=== PATIENT | female | born 1950 | race Caucasian/White ===

== ENCOUNTER 2017-10-09 06:10 | Observation (INO) | payer MEDICARE ==
[~2017-10-09 06:10] MED LIST: Buffered Lidocaine 0.9% SYRIN* 5 ML/SYR SYRINGE INTRADERM ONE; Dexamethasone IV* 4 MG/ML 1 ML (4 MG) IV SLOW PU ONE; Famotidine IV* 10 MG/ML 2 ML (20 mg) IV ONE; celeCOXIB CAP* 200 MG PO ONE
[2017-10-09] MEDS ORDERED: Dexamethasone IV* 4 MG/ML 1 ML (4 MG) ONE (06:17)
[2017-10-09] MEDS ORDERED: ceFAZolin 2 GM PREMIX (*) 2 GM/50 ML BAG IVPB ONE (06:17)
[2017-10-09] MEDS ORDERED: celeCOXIB CAP* 100 MG ONE (06:17)
[2017-10-09] MEDS ORDERED: Famotidine IV* 10 MG/ML 2 ML (20 mg) ONE (06:17)
[2017-10-09] MEDS ORDERED: Rocuronium* 10 MG/ML VIAL ONE (06:39)
[2017-10-09] MEDS ORDERED: fentaNYL* 50 MCG/ML 5 ML VIAL (250 MCG VIAL) ONE (06:39)
[2017-10-09] MEDS ORDERED: Midazolam* 1 MG/ML 2 ML VIAL (2 MG) ONE (06:39)
[2017-10-09] MEDS ORDERED: Thrombin 5,000 UNITS* 1 APPLIC KIT - topical use - TOPICAL ONE (07:31)
[2017-10-09] MEDS ORDERED: Bacitracin IV* 50,000 UNITS INJ ONE (07:31)
[2017-10-09] MEDS ORDERED: Lidocaine 1% MPF wEPI 200,000* 30 ML SDV ONE (07:31)
[2017-10-09] MEDS ORDERED: Metoclopramide IV* 5 MG/ML 2 ML VIAL ONE (08:21)
[2017-10-09] MEDS ORDERED: Propofol* 10 MG/ML 20 ML BTL IV PUSH ONE (08:23)
[2017-10-09] MEDS ORDERED: Lidocaine 2% PF * 5 ML VIAL ONE (08:23)
[2017-10-09] MEDS ORDERED: Naloxone* 0.4 MG/ML 1 ML VIAL IV PRN (08:24)
[2017-10-09] MEDS ORDERED: EPHEDrine (Pressors)* 50 MG/ML VIAL ONE (08:25)
[2017-10-09] MEDS ORDERED: Acetaminophen TAB* 325 MG PO PRN ×2 (08:29→10:57)
[2017-10-09] MEDS ORDERED: Morphine INJ* 2 MG/ML 1 ML SYRINGE (TWO MG - NEW SYRINGE VERSION) IV PRN (08:29)
[2017-10-09] MEDS ORDERED: PROCHLORPERAZINE INJ 5 MG/ML 2 ML VIAL IV PRN (08:29)
[2017-10-09] MEDS ORDERED: DiMENhydriNATE IV* 50 MG/ML VIAL IV PUSH PRN (08:29)
[2017-10-09] MEDS ORDERED: fentaNYL* 50 MCG/ML 2 ML VIAL (100 MCG VIAL) IV PRN (08:29)
[2017-10-09] MEDS ORDERED: Ondansetron INJ* 2 MG/ML VIAL IV PRN ×2 (08:29→10:57)
[2017-10-09] MEDS ORDERED: HYDROcodone/ACETAMIN 5-325 MG* 1 TAB PO PRN (08:29)
[2017-10-09] MEDS ORDERED: Ondansetron INJ* 2 MG/ML VIAL ONE (09:01)
[2017-10-09] MEDS ORDERED: Sugammadex * 200 MG/2 ML VIAL IV PUSH ONE (09:25)
--- NOTE | 2017-10-09 10:07 | RAD ---
INDICATION: RIGHT L5-S1 hemilaminectomy, facetectomy, synovial cyst resection. COMPARISON: No relevant prior exams available on the [facility] PACS for comparison. TECHNIQUE: 13.5 seconds fluoroscopy. FINDINGS: Spot images document instruments at the L5-S1 level. IMPRESSION: Interoperative control films. CPT II Codes: G9500
[2017-10-09] MEDS ORDERED: Magnesium Hydroxide LIQ* 30 ML UDC PO PRN (10:57)
--- NOTE | 2017-10-09 21:15 | OP ---
OPERATIVE REPORT: DATE OF OPERATION: 10/09/17 - Inpatient, room SSU 333-01 DATE OF : 54 SURGEON: Laila Knapp MD COMPRESSOR REPAIRER: DAVID Trujillo The case was done with the assistance of surgical PA because of the complexity of the case. ANESTHESIOLOGIST: Moise Lira MD ANESTHESIA: General. PRE-OP DIAGNOSIS: Right L5-S1 facet cyst. POST-OP DIAGNOSIS: Right L5-S1 facet cyst. OPERATIVE PROCEDURE: The patient underwent right L5-S1 hemilaminectomy, medial facetectomy, foraminotomy, and resection of facet cyst. INDICATIONS: The patient is a very pleasant 67-year-old female with complaints of right lower extremity pain. MRI revealed a large right L5-S1 facet cyst, possibly synovial cyst and after failing conservative modalities, she was offered the option of surgical intervention. After explaining nonoperative and operative treatment options, expectations, limitations, possible complications of the procedure with complications including, but not limited to bleeding, infection, risk of injury to adjacent structure, paralysis, , need for additional procedure, anesthesia risk, stroke, blindness, cancer, instability, need for additional procedure, recurrence of the cyst, inability to totally remove the cyst , anesthesia risk, the patient was agreeable to proceed with surgery and informed consent was obtained. The patient understood that her condition might not improve and in fact may get worse after the surgery and that she may have additional procedures in the future. She also understood that operative plan may be modified according to intraoperative findings and conditions. ESTIMATED BLOOD LOSS: 10 cc. COMPLICATIONS: None. DESCRIPTION OF PROCEDURE: The patient was brought to the operating room, was placed on general anesthesia by the anesthesia team. She was carefully positioned prone on Yvon frame on Chito table and all bony prominences were meticulously padded. Her skin was prepped and draped in standard fashion. After appropriate surgical pause and patient identification, appropriate surgical level was identified with intraoperative fluoroscopic imaging. A small , paramedian incision was marked on the skin over the L5-S1 facet level and the skin was infiltrated with local anesthetic and #10 surgical blade was used to incise the skin. The incision was carried down the subcutaneous tissue with Bovie cautery. The dorsiflexion was then incised with surgical blade and over a series of dilators the METRx with tubular retractor system was introduced into the field. Operating microscope was brought into the field and the remaining small amount of paraspinal musculature was elevated with Bovie cautery and the lamina facet of L5 was exposed. A high speed drill and Kerrison punch was used to fashion a hemilaminectomy and medial facetectomy. After resection of the ligamentum flavum, a large cystic lesion adherent to the thecal sac was found medial to the L5-S1 facet in the expected area from the preoperative MRI. The dissection was carried cephalad to caudal to the level of normal dura and with use of Bunola #4 and Rhoton instruments, and the facet cyst was carefully totally resected intact. The cyst was then sent for pathology examination. After copious irrigation and confirmation of adequate hemostasis, a foraminotomy was performed at L5 and S1 nerve roots and after appropriate irrigation, meticulous inspection and meticulous hemostasis, the thecal sac and the nerve roots were found to be free of any pressure phenomenon. The wound was then closed after the tubular retractor was removed by layers with 0 interrupted Vicryl sutures approximating the dorsal fascia and 2-0 interrupted Vicryl suture to approximate the subcutaneous tissue. The skin was covered with Dermabond. At the end of the procedure, counts were reported to be correct. The patient then turned supine, was extubated and was transferred to recovery in excellent condition. The case was done with the assistance of surgical PA because of the complexity of the case. [id number]/[facility] #: [id number] JAIME
[2017-10-10] MEDS: HYDROcodone/ACETAMIN 5-325 MG* 1 TAB PO PRN ×4 (02:42→13:48)
--- NOTE | 2017-10-10 13:57 | PN ---
Progress Note - Progress Note Date of Service: 10/10/17 SOAP: Subjective: []No events ON. Preoperative Rt LE pain resolved. Tolerates PO well. Ambulates, Voids.Patient wants to go home. Objective: []VSS, Afebrile. Wound s,c,d. AAOx3 BEV, CN II-XII grossly intact. Motor 5/5 except Rt Foot DF, EHL, PF 4+/5 Sensory grossly intact to light touch except Rt S1 (improved compared to preop) Assessment: []67 yof POD#1 Right L5-S1 MIS hemilaminectomy and resection of synovial cyst. Plan: []Monitor VS, Neurochecks Encourage ambulation. DC today Full instructions were given to the patient. Stephanie Knapp MD
[2017-10-10 14:59] VITALS: BP 120/68
--- NOTE | 2017-10-29 01:03 | DS ---
DISCHARGE SUMMARY: DATE OF ADMISSION: 10/09/17 DATE OF DISCHARGE: 10/10/17 PROCEDURE: The patient underwent a right L5-S1 minimally invasive hemilaminectomy, medial facetectom y, foraminotomy, and resection of facet cyst. COMPLICATIONS: None. DISPOSITION: Home. HOSPITAL COURSE: The patient is a very pleasant 67-year-old female with complaints of right lower ex tremity pain. MRI revealed a large right L5-S1 facet cyst, possible synovial cyst and after failing conservative treatment modalities she was offered the option of surgical intervention in the form of right MIS L5-S1 hemilaminectomy, medial facetectomy, and resection of a facet cyst. The patient niesha rated the procedure well, was extubated, and was transferred to the floor in excellent condition. Sh e continued to improve and on 10/10/17 she was found to be able to be discharged home. She was able to ambulate. The preoperative pain has completely resolved. She was able to tolerate p.o. well and void and she was able to be discharged home with p.o. pain medications. Discharge instructions were given to the patient. [id number]/[facility] #: [id number]
== END 2017-10-10 14:35 | disposition home or self-care (01) ==
LOC: OR 06:10 → SSU 10:57
PROVIDERS: ADMIT Neurological Surgery; ATTEND Neurological Surgery
DX: M71.38 Other bursal cyst, other site (principal); M54.9 Dorsalgia, unspecified; M47.26 Other spondylosis with radiculopathy, lumbar region
CPT/HCPCS: 76001; 88304; A9270-GY; G0378; J0690; J1100; J2001; J2250; J2405; J2704; J2765; J3010